=== PATIENT | male | born 1945 ===

== ENCOUNTER 2020-04-28 06:06 | Day surgery (SDC) | payer OTHER ==
[~2020-04-28 06:06] MED LIST: DOXAZOSIN MESYLA2 MG PO; ZYLOPRIM100 MG PO
[2020-04-28] MEDS ORDERED: PERCOCET 5-3251 EACH PO (09:15)
[2020-04-28] MEDS ORDERED: TAMS0.4C PO (14:51)
== END 2020-04-28 17:00 | disposition home or self-care (01) ==
LOC: CIR.AMB 06:06 → ADM 10:15 → CIR.AMB 10:15
PROVIDERS: ATTEND Surgery
DX: K64.8 Other hemorrhoids (principal); Z20.828 Contact with and (suspected) exposure to other viral communicable diseases